=== PATIENT | female | born 1990 | race Hispanic/Latino ===

== ENCOUNTER 2021-07-24 19:26 | Emergency (ER) | payer SELFPAY ==
--- OUTSIDE RECORDS SUMMARY | 2021-07-24 19:30 | XMS REPORT | Continuity of Care Document ---
:1990 Author Organization [facility] t Address [address] [place] [address] Care Team Providers Name Role Phone Austin MCDONOUGH Attending Clinician Unavailable Doctor Unassigned, Name Attending Clinician Unavailable Austin Mcdonough MD Attending Clinician Elisa FRENCH Attending Clinician ELISA Attending Clinician Unavailable Problems Condition Condition Condition Status Onset Resolution Last Treating Co mments Source Name Details Category Date Date Treatment Clinician Date Well woman Well woman Disease Active U nivers exam (no exam (no 09-26 ity of gynecolog[place] er[place] exam[place] eric exam[place] 00 [facility] BMI BMI Disease Active Univers 28.0-28.9, 28.0-28.9, 5-19 it y of adult adult 00:00: [place] 00 Medical Branch Anemia, Anemia, Disease Active Univers 1-24 it y of 00:00: [place] 00 Medical Branch History of History of Disease Active U nivers inguinal inguinal 1-07 ity of hernia hernia 00:00: [place] repair, repair, 00 Medical bilateral bilateral Bran ch History of History of Disease Active Overview : Univers tracheoeso tracheoeso 1-07 reports i ty of phageal phageal 00:00: repair [place] fistula fistula 00 was done Medica l when she Branch was a baby.Has large vertical infraumbi lical scar Tubal Tubal Disease Active 2014-05 Overview: Univer s ligation ligation 2-18 Declined ity of status status 00:00: d/t [place] 00 vaginal Medical delivery, Branch consideri ng EssureCon sent signed 04/27/15 History of History of Disease Active 2014-05 U nivers 0-05 ity of delivery, delivery, 00:00: Claudio gao currently currently 00 [facility] Branch in third in third trimester trimester Susceptibl Susceptibl Disease Active U nivers e to e to 8-13 ity of varicella varicella 00:00: Claudio gao (non-immun (non-immun 00 Me dical e), e), Branch currently currently Generalize Generalize Disease Active U nivers d anxiety d anxiety 9-11 ity of disorder disorder 00:00: [place] 00 Medical Branch Allergies, Adverse Reactions, Alerts Allergy Allergy Status Severity Reaction(s) Onset Inactive Treating Comm ents Source Name Type Date Date Clinician PEANUT DRUG Active Anaphylaxis Unive rs INGREDI 8-08 ity of 00:00: [place] 00 Medical Branch Peanut Propensi Active Anaphylaxis Uni vers ty to 8-08 ity of adverse 00:00: [place] reaction 00 Medical s Branch LATEX DRUG Active Swelling 2012-05 Univers INGREDI 0-04 ity of 00:00: [place] 00 Medical Branch Latex Propensi Active Swelling 2012-05 Vaginal Unive rs ty to 0-04 area ity of adverse 00:00: only. [place] reaction 00 Medical s Branch Social History Social Habit Start Date Stop Date Quantity Comments Source Exposure to Not sure [facility] SARS-CoV-2 [facility] (event) [place] Tobacco use and 2020-08-23 2020-08-23 Never used Universit y of exposure 00:00:00 00:00:00 [facility] [place] [facility] Alcohol intake 2020-08-23 2020-08-23 Current University of 00:00:00 00:00:00 non-drinker of [facility] alcohol Branch (finding) Alcohol Comment 2015-09-26 2015-09-26 only drinks on Unive rsity of 00:00:00 00:00:00 weekends. [facility] [place] [facility] Sex Ass[birth year] At [birth year] Universit y of 00:00:00 00:00:00 [facility] [place] [facility] Smoking Status Start Date Stop Date Source Never smoker [facility] Medications Ordered Filled Start Stop Current Ordering Indication Dosage Frequency Signature Comments Components Source Medication Medication Date Date Medication? Clinician (SIG) Name Name ceFAZolin 2020- No 1000mg 1,000 mg, Univers (ANCEF) 3-12 03-12 IV ity of 1,000 mg in 00:30: 00:15 Piggyback, [place] NaCl 0.9% 00 :00 ONCE, 1 Medical (NS) 50 mL dose, [facility] ch MINI-BAG 07/19/20 at 1830, 50 mL
Reas on for Anti-Infec tive: Documented Infection< br>Documen lidia Infection Site: Urine
D uration of Therapy: 7 days ketorolac No 30mg 30 mg, Unive rs (TORADOL) 07-19 Slow IV ity of injection 23:30: 22:41 Push, [place] 30 mg 00 :00 ONCE, 1 Medical dose, [facility] Branch 07/19/20 at 1730, CARLOS
Fa culty member approving Restricted medication : EMERGENCY ROOM, aspirin 2020- No 325mg 325 mg, Unive rs tablet 325 07-19 Oral, ity of mg 22:00: 22:14 ONCE, 1 [place] 00 :00 dose, [facility] Medical 07/19/20 at Branch 1600, STAT cephALEXin 2020- No [id number] 500mg Take 1 Univers (KEFLEX) 07-19 capsule by ity of 500 mg 00:00: 04:59 mouth 2 [place] capsule 00 :00 (two) Medical times Branch daily for 7 days. predniSONE Yes Take 1 Unive rs 20 mg 1-14 tablet PO ity of tablet 00:00: twice a [place] day for 5 Medical days, then Branch 1 tablet Q AM for 3 days montelukast Yes 10mg Take 1 Univ ers (SINGULAIR) 1-14 tablet by ity of 10 mg 00:00: mouth at [place] tablet 00 bedtime. Medical Branch amoxicillin Yes 1{tbl} Take 1 Un tunde -clavulanat 1-14 tablet by ity of e 875-125 00:00: mouth [place] mg per 00 every 12 Medical tablet (twelve) Branch hours. predniSONE Yes Take 1 Unive rs 20 mg 1-14 tablet PO ity of tablet 00:00: twice a [place] 00 day for 5 Medical days, then Branch 1 tablet Q AM for 3 days montelukast Yes 10mg Take 1 Univ ers (SINGULAIR) 1-14 tablet by ity of 10 mg 00:00: mouth at [place] tablet 00 bedtime. Medical Branch amoxicillin Yes 1{tbl} Take 1 Un tunde -clavulanat 1-14 tablet by ity of e 875-125 00:00: mouth [place] mg per 00 every 12 Medical tablet (twelve) Branch hours. predniSONE 2020- No Take 1 Univ ers 20 mg 1-14 04-15 tablet PO ity of tablet 00:00: 00:00 twice a [place] 00 :00 day for 5 Medical days, then Branch 1 tablet Q AM for 3 days montelukast 2020- No 10mg Take 1 Uni vers (SINGULAIR) 1-14 04-15 tablet by it y of 10 mg 00:00: 00:00 mouth at [place] tablet 00 :00 bedtime. Medical Branch amoxicillin 2020- No 1{tbl} Take 1 U nivers -clavulanat 1-14 04-15 tablet by it y of e 875-125 00:00: 00:00 mouth [place] mg per 00 :00 every 12 Medical tablet (twelve) Branch hours. predniSONE 2020- No Take 1 Univ ers 20 mg 1-14 04-15 tablet PO ity of tablet 00:00: 00:00 twice a [place] 00 :00 day for 5 Medical days, then Branch 1 tablet Q AM for 3 days montelukast 2020- No 10mg Take 1 Uni vers (SINGULAIR) 1-14 04-15 tablet by it y of 10 mg 00:00: 00:00 mouth at [place] tablet 00 :00 bedtime. Medical Branch amoxicillin 2020- No 1{tbl} Take 1 U nivers -clavulanat 1-14 04-15 tablet by it y of e 875-125 00:00: 00:00 mouth [place] mg per 00 :00 every 12 Medical tablet (twelve) Branch hours. predniSONE 2020- No Take 1 Univ ers 20 mg 1-14 04-15 tablet PO ity of tablet 00:00: 00:00 twice a [place] 00 :00 day for 5 Medical days, then Branch 1 tablet Q AM for 3 days montelukast 2020- No 10mg Take 1 Uni vers (SINGULAIR) 1-14 04-15 tablet by it y of 10 mg 00:00: 00:00 mouth at [place] tablet 00 :00 bedtime. Medical Branch amoxicillin 2016-1- No 1{tbl} Take 1 U nivers -clavulanat 1-14 04-15 tablet by it y of e 172-835 00:00: 00:00 mouth [place] mg per 00 :00 every 12 Medical tablet (twelve) Branch hours. medroxyPROG 2016-0 Yes [id number] 150mg U nivers ESTERone 5-18 ity of (DEPO-PROVE 19:15: [place] RA) 00 Medical injection Branch 150 mg medroxyPROG 2016-0 Yes [id number] 150mg U nivers ESTERone 5-18 ity of (DEPO-PROVE 19:15: [place] RA) 00 Medical injection Branch 150 mg medroxyPROG 2016-0 Yes [id number] 150mg U nivers ESTERone 5-18 ity of (DEPO-PROVE 19:15: [place] RA) 00 Medical injection Branch 150 mg medroxyPROG 2016-0 Yes [id number] 150mg U nivers ESTERone 5-18 ity of (DEPO-PROVE 19:15: [place] RA) 00 Medical injection Branch 150 mg medroxyPROG 2016-0 Yes [id number] 150mg U nivers ESTERone 5-18 ity of (DEPO-PROVE 19:15: [place] RA) 00 Medical injection Branch 150 mg medroxyPROG 2016-0 Yes [id number] 150mg U nivers ESTERone 5-18 ity of (DEPO-PROVE 19:15: [place] RA) 00 Medical injection Branch 150 mg Immunizations Ordered Filled Immunization Date Status Comments [facility] e Immunization Name Name Varicella 2015-06-04 Completed University of (varivax)(chicken 00:00:00 [place] M edical pox) Branch Varicella 2015-06-04 Completed University of (varivax)(chicken 00:00:00 [place] M edical pox) Branch Varicella 2015-06-04 Completed University of (varivax)(chicken 00:00:00 [place] M edical pox) Branch Varicella 2015-06-04 Completed University of (varivax)(chicken 00:00:00 [place] M edical pox) Branch Varicella 2015-06-04 Completed University of (varivax)(chicken 00:00:00 [place] M edical pox) Branch Varicella 2015-06-04 Completed University of (varivax)(chicken 00:00:00 [place] M edical pox) Branch TDAP 2015-04-27 Completed University of 00:00:00 [facility] [place] [facility] TDAP 2015-04-27 Completed University of 00:00:00 [facility] [place] [facility] TDAP 2015-04-27 Completed University of 00:00:00 [facility] [place] [facility] TDAP 2015-04-27 Completed University of 00:00:00 [facility] [place] [facility] TDAP 2015-04-27 Completed University of 00:00:00 [facility] [place] [facility] TDAP 2015-04-27 Completed University of 00:00:00 [facility] [place] [facility] Influenza Virus 2015-01-26 Completed Universit y of Vaccine Quad IM 3+ 00:00:00 [facility] Influenza Virus 2015-01-26 Completed Universit y of Vaccine Quad IM 3+ 00:00:00 [facility] Influenza Virus 2015-01-26 Completed Universit y of Vaccine Quad IM 3+ 00:00:00 [facility] Influenza Virus 2015-01-26 Completed Universit y of Vaccine Quad IM 3+ 00:00:00 [facility] Influenza Virus 2015-01-26 Completed Universit y of Vaccine Quad IM 3+ 00:00:00 [facility] Influenza Virus 2015-01-26 Completed Universit y of Vaccine Quad IM 3+ 00:00:00 [facility] HPV 2009-02-27 Completed University of 00:00:00 [facility] [place] [facility] HPV 2009-02-27 Completed University of 00:00:00 [facility] [place] [facility] HPV 2009-02-27 Completed University of 00:00:00 [facility] [place] [facility] HPV 2009-02-27 Completed University of 00:00:00 [facility] [place] [facility] HPV 2009-02-27 Completed University of 00:00:00 [facility] [place] [facility] HPV 2009-02-27 Completed University of 00:00:00 [facility] [place] [facility] HPV 2008-10-30 Completed University of 00:00:00 [facility] [place] [facility] HPV 2008-10-30 Completed University of 00:00:00 [facility] [place] [facility] HPV 2008-10-30 Completed University of 00:00:00 [facility] [place] [facility] HPV 2008-10-30 Completed University of 00:00:00 [facility] [place] [facility] HPV 2008-10-30 Completed University of 00:00:00 [facility] [place] [facility] HPV 2008-10-30 Completed University of 00:00:00 [facility] [place] [facility] HPV 2008-08-17 Completed University of 00:00:00 [facility] [place] [facility] HPV 2008-08-17 Completed University of 00:00:00 [facility] [place] [facility] HPV 2008-08-17 Completed University of 00:00:00 [facility] [place] [facility] HPV 2008-08-17 Completed University of 00:00:00 [facility] [place] [facility] HPV 2008-08-17 Completed University of 00:00:00 [facility] [place] [facility] HPV 2008-08-17 Completed University of 00:00:00 [facility] [place] [facility] Rubella 2007-12-01 Completed University of 00:00:00 [facility] [place] [facility] Varicella 2007-12-01 Completed University of (varivax)(chicken 00:00:00 [facility] edical pox) Branch Rubella 2007-12-01 Completed University of 00:00:00 [facility] [place] [facility] Varicella 2007-12-01 Completed University of (varivax)(chicken 00:00:00 [facility] edical pox) Branch Rubella 2007-12-01 Completed University of 00:00:00 [facility] [place] [facility] Varicella 2007-12-01 Completed University of (varivax)(chicken 00:00:00 [place] edical pox) Branch Rubella 2007-12-01 Completed University of 00:00:00 [facility] [place] [facility] Varicella 2007-12-01 Completed University of (varivax)(chicken 00:00:00 [facility] edical pox) Branch Rubella 2007-12-01 Completed University of 00:00:00 [facility] [place] [facility] Varicella 2007-12-01 Completed University of (varivax)(chicken 00:00:00 [facility] edical pox) Branch Rubella 2007-12-01 Completed University of 00:00:00 [facility] [place] [facility] Varicella 2007-12-01 Completed University of (varivax)(chicken 00:00:00 [place] M edical pox) Branch Td 2006-02-12 Completed University of 00:00:00 [facility] [place] [facility] Td 2006-02-12 Completed University of 00:00:00 [facility] [place] [facility] Td 2006-02-12 Completed University of 00:00:00 [facility] [place] [facility] Td 2006-02-12 Completed University of 00:00:00 [facility] [place] [facility] Td 2006-02-12 Completed University of 00:00:00 [facility] [place] [facility] Td 2006-02-12 Completed University of 00:00:00 [facility] [place] [facility] Vital Signs Vital Name Observation Time Observation Value Comments Source Body height 2020-08-23 16:34:00 165.1 cm Universi [facility] Body weight 2020-08-23 16:34:00 68.13 kg [facility]i [facility] [place] [facility] BMI 2020-08-23 16:34:00 24.99 kg/m2 [facility] [place] [facility] Oxygen saturation in 2020-08-23 16:34:00 98 /min University of Arterial blood by [facility] Pulse oximetry Branch Systolic blood 2020-08-23 16:34:00 108 mm[Hg] Univer sity of pressure [place] [facility] Diastolic blood 2020-08-23 16:34:00 73 mm[Hg] Unive rsity of pressure [place] [facility] Heart rate 2020-08-23 16:34:00 68 /min [facility] [place] [facility] Respiratory rate 2020-08-23 16:34:00 19 /min Univ ersity of [facility] Branch Systolic blood 2020-07-20 01:00:00 113 mm[Hg] Univer sity of pressure [place] [facility] Diastolic blood 2020-07-20 01:00:00 79 mm[Hg] Unive rsity of pressure [place] [facility] Heart rate 2020-07-20 01:00:00 70 /min [facility]i [facility] [place] [facility] Respiratory rate 2020-07-20 01:00:00 17 /[facility] [place] [facility] Oxygen saturation in 2020-07-20 01:00:00 100 /min University of Arterial blood by [facility] Pulse oximetry Branch Body temperature 2020-07-19 22:46:47 36.72 [facility] height 2020-07-19 21:46:00 165.1 cm [facility] Body weight 2020-07-19 21:46:00 68.947 kg [facility] BMI 2020-07-19 21:46:00 25.29 [facility]/m2 [facility] Procedures Procedure Date / Time Performed Performing Clinician Sourc e EXTERNAL PROVIDER - 2020-09-07 05:01:00 Doctor Unassigned, No [facility] CARDIOLOGY Name Medical Branch ASSIGNMENT OF BENEFITS 2020-08-23 16:20:41 Doctor Unassigned, No [facility] Branch TROPONIN I 2020-07-20 00:33:[address] [facility] BASIC METABOLIC PANEL 2020-07-19 22:13:00 Keira Brar [facility] (NA, K, CL, CO2, Medical Branch GLUCOSE, BUN, CREATININE, CA) CBC WITH DIFF 2020-07-19 22:13:[address] [facility] URINALYSIS 2020-07-19 22:13:00 [facility] 2020-07-19 22:13:00 Keira Brar [facility] XR CHEST 1 VW 2020-07-19 22:00:47 [facility] NOTICE OF PRIVACY 2020-07-19 21:41:35 Doctor Unassigned, No [facility] PRACTICES Name [facility] Encounters Start End Encounter Admission Attending Care Care Encounter Source Date/Time Date/Time Type Type Clinicians Facility Department ID 2021-02-27 2021-02-27 [id number] Univers 13:00:00 13:00:00 SENDIL [id number] [facility] [place] 2020-10-04 2020-10-04 [facility] [id number] Univers 13:30:00 13:30:00 SENDIL [id number] [facility] 2020-10-04 2020-10-04 Outpatient R CEASAR [facility] [id number] Univers 13:30:00 13:30:00 SENDIL [facility] [place] [facility] 2020-09-12 2020-09-12 [facility] [id number] Univers 13:00:00 13:00:00 SENDIL [id number] [facility] [place] 2020-09-07 2020-09-07 Orders Doctor TANG [id number] Univers 00:00:00 00:00:00 Only Unassigned, KEMAR [id number] ity [place] [facility] [id number] Manfred as [phone] [address] 2020-08-23 2020-08-23 Office Ceasar [facility] [id number] Univers 11:22:01 12:02:21 Visit Sendangel [place] [id number] ity [facility] [id number] [place] [facility] [phone] [place] [id number] [facility] 2020-08-23 2020-08-23 Outpatient R CEASAR, [facility] [id number] Univers 11:00:00 11:00:00 SENDIL [facility] [place] [facility] 2020-08-23 2020-08-23 Orders Doctor KITTY [id number] Univers 00:00:00 00:00:00 Only Unassigned, KEMAR [id number] ity of [place] [facility] [id number] Manfred as [phone] [facility] [address] [place] 2020-07-19 2020-07-19 Emergency [facility] [id number] Univers 15:50:00 19:36:00 Keira Clarissa [id number] i ty [facility] [id number] [place] [id number] [facility] [address] [place] 2020-07-19 2020-07-19 Emergency X [facility] ERT [id number] Univers 15:41:00 15:41:00 [facility] Results Test Description Test Time Test Comments Results Result Comments Source PAP TEST, THINPREP, IMAGED 2021-07-10 12:16:37 Test Item Value Reference Range Interpretation Comme nts SOURCE: (test code = Cervical/Endocervical 8001) SLIDES: (test code = 2 8011) LMP: (test code = 8021) 06/15/2021 SPECIMEN ADEQUACY: (NOTE) Unsa tisfactory (see (test code = 74778) Interpre tation). INTERPRETATION: (test UNSATISFACTORY; SEE BELOW A code = 85846) ------ UNSATISFACTORY FOR EVALUATION Insufficient cellularity (Charges deleted, please resubmit)------ OTHER COMMENTS: (test (NOTE) Interp reted using an alternate code = 8081) method of proce ssing. This testwas develop ed and its performance nilsa racteristics determined by[facility] [place] [facility]. It has not been cleared or approved by the FDA. The onel rubin is regulated under CLIA asqu alified to perform high-co mplexity testing. This test is us edfor clinical purposes. It sh ould not be regarded asinve stigational or for research. RESTAURANT LINE SERVER: (test MOLLY RUIZ,CT(ASCP) code = 8101) QC TECHNOLOGIST: (test STEPHANIE SHEFFIELDCT(ASCP) code = 8111) LOCATION: (test code = (NOTE) Speci mens processed and 42539) interpreted at [facility], [address] [place] [address], , CLIA: [id number] CPT: (test code = 8140) (NOTE) 8817 5 UNLESS OTHERWISE INDICATED, COMP UTER AIDED AND CYTOTECHNOLOGIS T SCREENING PERFORMED. The Pap test is a screening lety t with an inherent, but l ow probability of error. Your patient should be reminded to consult you im mediately if she experiences any suspicious signs or sympto ms, regardless of her Pap test re sult. An alternate repor t format containing imag es or consolidated prior Pap history is avai lable as applicable. CT/NG, NAAT, [id number] 17:27:32 Test Item Value Reference Range Interpretation Comments GONORRHEA, NAAT NEGATIVE NEGATIVE IMPORTANT (test code = NOTICE: [place] [address]) [email or web address] Note: Assay methodology is nucleic acid amplification b y chemical sprayer mediated amplification ( TMA) utilizing the A ptima Combo 2 Assay. CHLAMYDIA, NAAT NEGATIVE NEGATIVE IMPORTANT (test code = NOTICE: [place] [address]) [email or web address] Note: Assay methodology is nucleic acid amplification b y chemical sprayer mediated amplification ( TMA) utilizing the A ptima Combo 2 Assay. HPV HIGH RISK WITH GENOTYPE, [id number] 16:08:47 Test Item Value Reference Range Interpretation Comments HPV HIGH RISK INTERP NEGATIVE NEGATIVE (test code = 89071) HPV 16 (test code = NEGATIVE 55626) HPV 18 (test code = NEGATIVE 18372) HPV, HR, OTHER NEGATIVE Testing GENOTYPES (test code methodo logy is real-time = 89674) PCR utilizing h ydrolysis probes with the Noy Ashleigh 480 0 system. The test indiv idually detects genot ypes 16 and 18, as well as the other 12 high r isk types (31,33,35,39,45 ,51,52,56 ,58,59,66,68). The expected re sult is negative. A negative result does not rule out the presence of HPV not included in the genotype set, a low level of infect ion or specimen aggie pling error. U NLESS OTHERWISE INDIC ATED, ALL TESTING PERFORM ED ATCLINICAL PATH [facility]. [address] [place] [id number] LABORATORY DIRE CTOR: Pipo JOSEPH NUMBER [id number] CAP ACCREDITATION N O. [id number] VAGINAL PATHOGENS DNA [id number] 13:38:48 Test Item Value Reference Range Interpretation Comments OPAL SPECIES (test code = 08220) NEGATIVE NEGATIVE G. VAGINALIS (test code = ) POSITIVE NEGATIVE A T. VAGINALIS (test code = ) NEGATIVE NEGATIVE [id number] 03:33:20 Test Item Value Reference Range Interpretation Comments RPR RESULT (test NON-REACTIVE NON-REACTIVE code = 3501) RPR TITER (test NOT INDIC. NOT INDIC. UNLES S OTHERWISE code = 3500) TITER INDICATED, ALL TESTING PERFORMED ATC NICAL PATHOLOGY LABOR [facility] [address] [place] [address] 7875 4 LABORATORY DI BRIAN: Pipo JOSEPHIA NUMBE R [id number] CAP ACCREDITATION N O. [id number] HIV 1/2 4TH GEN, RFLX [id number] 03:02:46 Test Item Value Reference Range Interpretation Comments HIV 1/2 4TH GEN, RFLX CONF (test NON-REACTIVE NON-REACTIVE code = 3514) HEPATITIS PANEL, [id number] 03:02:46 Test Item Value Reference Range Interpretation Comments HEPATITIS A IgM (test NON-REACTIVE NON-REACTIVE code = 84733) HEPATITIS B CORE IgM NON-REACTIVE NON-REACTIVE (test code = 4644) HEPATITIS B SURF AG NON-REACTIVE NON-REACTIVE (test code = 2739) HEPATITIS C ANTIBODY NON-REACTIVE NON-REACTIVE (test code = 4675) INTERPRETATION (NOTE) Hepatiti s A HEPATITIS A: (test code sero logy shows no = 2552) evidence of acu te hepatitis A. INTERPRETATION (NOTE) Hepatiti s B HEPATITIS B: (test code sero logy shows no = 73711) evidence of acu te hepatitis B and no indication of exposure to hepatitis B vir us in the previous kaveh eight months. INTERPRETATION (NOTE) Hepatiti s C HEPATITIS C: (test code sero logy shows no = 31609) evidence of exposure to hepatitisC viru s at this time. It can take up to 12 months after exposure tothe hepatitis C vir us for antibodies to become detectab le in the bloo d in certain patients. SARS-CoV-2 (COVID-19), RT-PCR/[id number] 08:08:12 Test Item Value Reference Interpretation Comments Range SARS-CoV-2 POSITIVE SEE NOTE A SARS-CoV-2 RNA INTERPRETATION DETECTEDPosit scott results (test code = are indicative of the [address]) presence of FIONA S-CoV-2 RNA;clinical co rrelation with patient hi story and other diagnosticinfor mation is necessary to de termine patient infecti on status.Positive results do not rule out bacterial infec tion or co-infectionwit h other viruses. Positi ve and negative predic tive values oftestin g are highly dependen t on prevalence. SOURCE (test code NASOPHARYNGEAL Note: M ethodology is = 91390) Noy Ashleigh Sofia l-Time RT-PCR. The exp ected result or refe rence range is NEGATI VE (Not Detected). For more information reg arding COVID-19 testin g to include clinicalinforma tion, methodology det ail, intended use, F DA authorization andrecommended fact sheets for nataliia ents or healthcare prov iders, see [facility] Announcement: S ARS-CoV-2 (COVID-19) by Jasen CAMPOVERDE at URL below (note ,fact sheets are prov ided by method given in report:https:// www.[employer]/clinicia ns/client -communications / Alternatively, see downloadable PD F fact sheet at:https://www. [employer] om/XHMMT-34-GA- PCR UNLESS OTHERWIS E INDICATED, ALL TESTING PERFORMED [facility] PATH[facility] [employer] [facility]. [address] [place] [address] 4 LABORATORY DIR TOM: DARY TARIQ M.D. CLIA NUMBER [id number] CAP ACCREDITATION N O. [id number] TROPONIN [id number] 01:09:04 Test Item Value Reference Range Interpretation Comments TROPONIN I (test <0.012 See_Comment [Automated code = 4973351964) message] The system which generated this result transmitted reference range : <=0.034 ng/mL. The reference range was not used to interpr et this result as normal/abnormal . NICHOLAS (test code = Equal or Less than NICHOLAS) 0.034 ng/ml---Normal ?Note: Cardiac troponin begins to rise 3-4 hours after the onset of ischemia. Repeat in 4-6 hours if the sample was drawn within 3-4 hours of the onset of the symptom and found normal. Between 0.035 and 0.120 ng/mL--- Borderline. Questionable myocardial injury or necrosis ? ?Note: Serial measurement may be necessary to confirm or exclude the diagnosis of myocardial injury or necrosis; Clinical correlation (symptoms, EKGs, imaging studies, and others) required; Repeat in 4-6 hours if clinically indicated. ? Equal or Higher than 0.121 ng/mL---Abnormal. Myocardial Injury or Necrosis Likely ? Biotin has been reported to cause a negative bias, interpret results relative to patient's use of biotin. ? Lab Interpretation Normal (test code = 67974-4) [facility] (NA, K, CL, CO2, GLUCOSE, BUN, CREATININE, CA)2020-07-19 22:50:13 Test Item Value Reference Range Interpretation Comments NA (test code = 140 mmol/L 135-145 8158053358) K (test code = 3.6 mmol/L 3.5-5.0 0473396044) CL (test code = 103 mmol/L 98-108 9308899844) CO2 TOTAL (test code = 26 mmol/L 23-31 0204281225) AGAP (test code = 2-16 9433132026) BUN (test code = 15 mg/dL 7-23 5144338921) GLUCOSE (test code = 99 mg/dL 70-110 4925411714) CREATININE (test code 0.74 mg/dL 0.50-1.04 = 3965942634) CALCIUM (test code = 9.3 mg/dL 8.6-10.6 0719931719) eGFR Calculation mL/min/1.73m2 (Non-) (test code = 1914856783) eGFR Calculation mL/min/1.73m2 () (test code = 9692889027) NICHOLAS (test code = NICHOLAS) Association of Glomerular Filtration Rate (GFR) and Staging of Kidney Disease* + -+ + ---+| GFR (mL/min/1.73 m2) ?| With Kidney Damage ?| ?Without Kidney Damage+ -------+ ------+ ---------+| ?>90 ?| ?Stage one ?| ? Normal ?+ --+ -+ ----+| ?60-89 ?| ?Stage two ?| ? Decreased GFR ? + -+ + ---+| ?30-59 ?| ?Stage three ?| ? Stage three ? + -+ + ---+| ?15-29 ?| ?Stage four ? | ? Stage four ?+ --+ -+ ----+| ?<15 (or dialysis) ? ?| ?Stage five ? | ? Stage five ?+ --+ -+ ----+ *Each stage assumes the associated GFR level has been in effect for at least three months. ?Stages 1 to 5, with or without kidney disease, indicate chronic kidney disease. Notes: Determination of stages one and two (with eGFR >59mL/min/1.73 m2) requires estimation of kidney damage for at least three months as defined by structural or functional abnormalities of the kidney, manifested by either:Pathological abnormalities or Markers of kidney damage (including abnormalities in the composition of the blood or urine or abnormalities in imaging tests). [facility]55 Test Item Value Reference Range Interpretation Comments APPEARANCE (test code = Hazy Clear A 6782174886) COLOR (test code = Yellow Yellow 7669581860) PH (test code = 4.8-8.0 9013706954) SP GRAVITY (test code = 1.003-1.030 6500841989) GLU U QUAL (test code = Normal Normal 6247312458) BLOOD (test code = Negative Negative 5591814484) KETONES (test code = Negative Negative 6568513968) PROTEIN (test code = Negative Negative 2887-8) UROBILIN (test code = Normal Normal 0333697769) BILIRUBIN (test code = Negative Negative 2221391215) NITRITE (test code = Negative Negative 9192166435) LEUK THI (test code = 500/uL Negative A 8764611428) RBC/HPF (test code = See_Comment [Autom ated message] 8903697247) The system [employer] generated this result transmitted ref erence range: 0 - 3 HP F. The reference range was not used to int erpret this result as normal/abnormal . WBC/HPF (test code = See_Comment H [Autom ated message] 2254812849) The system [employer] generated this result transmitted ref erence range: 0 - 5 HP F. The reference range was not used to int erpret this result as normal/abnormal . BACTERIA (test code = Few Negative A 6142967844) MUCOUS (test code = Slight Negative LPF A 2636722806) SQ EPITH (test code = HPF 7267239985) HYAL CAST (test code = See_Comment [Aut omated message] 8631434154) The system [employer] generated this result transmitted ref erence range: <=2 LPF. The reference range was not used to int erpret this result as normal/abnormal . Lab Interpretation (test Abnormal code = 35279-6) [facility] with [id number] 22:31:25 Test Item Value Reference Range Interpretation Comments WBC (test code = See_Comment [Automated 6690-2) message] The sy stem which generated this result transmitted reference range : 4.30 - 11.10 10*3/?L. The reference range was not used to interpret this result as normal/abnormal . RBC (test code = See_Comment [Automated 789-8) message] The sy stem which generated this result transmitted reference range : 3.93 - 5.25 10*6/?L. The reference range was not used to interpret this result as normal/abnormal . HGB (test code = 11.1 g/dL 11.6-15.0 L 718-7) HCT (test code = 34.3 % 35.7-45.2 L 4544-3) MCV (test code = 78.5 fL 80.6-95.5 L 787-2) MCH (test code = 25.4 pg 25.9-32.8 L 785-6) MCHC (test code = 32.4 g/dL 31.6-35.1 786-4) RDW-SD (test code = 44.0 fL 39.0-49.9 99618-2) RDW-CV (test code = 15.4 % 12.0-15.5 788-0) PLT (test code = See_Comment [Automated 777-3) message] The sy stem which generated this result transmitted reference range : 166 - 358 10*3/ ?L. The reference r victorino was not used to interpret this result as normal/abnormal . MPV (test code = 12.3 fL 9.5-12.9 50328-6) NRBC/100 WBC (test See_Comment [Automat ed code = 3482368577) message] The system which generated this result transmitted reference range : 0.0 - 10.0 /100 WBCs. The refer ence range was not u sed to interpret th is result as normal/abnormal . NRBC x10^3 (test code <0.01 See_Comment [Auto mated = 3069519489) message] The s ystem which generated this result transmitted reference range : 10*3/?L. The reference range was not used to interpret this result as normal/abnormal . GRAN MAT (NEUT) % 48.9 % (test code = 770-8) IMM GRAN % (test code 0.30 % = 6617876231) LYMPH % (test code = 41.2 % 736-9) MONO % (test code = 6.4 % 5905-5) EOS % (test code = 2.7 % 713-8) BASO % (test code = 0.5 % 706-2) GRAN MAT x10^3(ANC) 4.32 10*3/uL 1.88-7.09 (test code = 7764320269) IMM GRAN x10^3 (test 0.03 10*3/uL 0.00-0.06 code = 4212065969) LYMPH x10^3 (test code 3.65 10*3/uL 1.32-3.29 H = 731-0) MONO x10^3 (test code 0.57 10*3/uL 0.33-0.92 = 742-7) EOS x10^3 (test code = 0.24 10*3/uL 0.03-0.39 711-2) BASO x10^3 (test code 0.04 10*3/uL 0.01-0.07 = 704-7) Lab Interpretation Abnormal (test code = 07509-9) [facility] [id number] 22:13:00 Test Item Value Reference Range Interpretation Comments POCT PREG (test code = 1605) negative POCT PREG LOT # (test code = 3575) [id number] POCT PREG TEST DATE (test 03/10/2022 code = 3576) Lab Interpretation (test code = Normal 35980-1) [facility] 1 [id number] 22:12:15HISTORY: Chest pain. TECHNIQUE: Portable AP view of the chest is obtained. No prior chest studyavailable for comparison. FINDINGS: No acute pneumonia. No pneumothorax or pleural effusion orpulmonary congestion detected. Cardiac size is within normal limits. CONCLUSIONS: No signs of acute cardiopulmonary disease.[facility], Radiant Results Inft User - 07/19/2020 4:13 PM CSTHISTORY: Chest pain.TECHNIQUE: Po rtable AP view of the chest is obtained. No prior chest studyavailable for comparison.FINDINGS: No acute pneumonia. No pneumothorax or pleural effusion orpulmonary congestion detected. Cardiac size is within normal limits. CONCLUSIONS: No signs of acute cardiopulmonary disease.[facility]"
[2021-07-24 20:53] LABS: Absolute Lymphocytes (CBC) 2.6 K/uL (0.7-4.9); Hematocrit 28.2 % (36.0-45.0); Lymphocytes % 41.5 % (15.3-44.8); MPV 8.5 fL (7.6-11.3)
[2021-07-24] MEDS ORDERED: IBUPROFEN 400 MG TAB ONE (20:58)
[2021-07-24 21:12] LABS: ALT/SGPT 100 U/L (12-78); AST/SGOT 81 U/L (15-37); Albumin 3.5 g/dL (3.4-5.0); Alkaline Phosphatase 78 U/L (45-117); BUN Blood Urea Nitrogen 14 mg/dL (7-18); Bicarbonate 28 mmol/L (21-32); Bilirubin Total 0.1 mg/dL (0.2-1.0); Glucose Level 100 mg/dL (74-106); Potassium 3.8 mmol/L (3.5-5.1); Protein, Total 7.6 g/dL (6.4-8.2); Sodium Level 140 mmol/L (136-145)
--- NOTE | 2021-07-24 21:12 | RAD REPORT ---
EXAM DESCRIPTION: Nidia Single View07/24/2021 8:49 pm CLINICAL HISTORY: Chest pain COMPARISON: none FINDINGS: The lungs appear clear of acute infiltrate. The heart is normal size IMPRESSION: No acute abnormalities displayed
[2021-07-24 21:18] LABS: Bilirubin Direct < 0.1 mg/dL (0-0.2); Troponin High Sensitivity < 3.00 pg/mL (<58.9)
--- NOTE | 2021-07-25 07:44 | ER ---
Nurse's Notes [facility] Name: Kacey Muir Age: 31 yrs Sex: Female : 1990 Arrival Date: 07/24/2021 Time: 19:32 Bed 18 Private MD: Diagnosis: Chest pain, unspecified Presentation: 07/24 19:52 Chief complaint: Patient states: Patient c/o pain on breathing front and back of the ke1 chest , cough and headache since this morning. Coronavirus screen: Vaccine status: Patient reports receiving the 2nd dose of the covid vaccine. Date March 2021. Ebola Screen: No symptoms or risks identified at this time. Initial Sepsis Screen: Does the patient meet any 2 criteria? No. Patient's initial sepsis screen is negative. Does the patient have a suspected source of infection? No. Patient's initial sepsis screen is negative. Risk Assessment: Do you want to hurt yourself or someone else? Patient reports no desire to harm self or others. Onset of symptoms was July 24, 2021. 19:52 Method Of Arrival: Ambulatory [facility] 19:52 Acuity: LALA 3 ke1 Triage Assessment: 19:59 General: Appears in no apparent distress. Behavior is calm, cooperative. Pain: ke1 Complains of pain in Chest front and back on breathing. EENT: No deficits noted. Neuro: Level of Consciousness is awake, alert, Oriented to person, place, time, situation. Cardiovascular: Reports chest pain, Heart tones S1 S2 Capillary refill < 3 seconds JVD is absent Patient's skin is warm and dry. Pulses are all present. Respiratory: Airway is patent Trachea midline Respiratory effort is even, unlabored, Respiratory pattern is regular, symmetrical, Breath sounds are clear. GI: Abdomen is round non-distended, Bowel sounds present X 4 quads. Abd is soft and non tender Patient currently denies constipation. : No deficits noted. Derm: No deficits noted. Musculoskeletal: No deficits noted. 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 - Social history:: Smoking status: Patient denies any tobacco usage or history of. Screenin:24 Abuse screen: Denies threats or abuse. Nutritional screening: No deficits noted. lr4 Tuberculosis screening: No symptoms or risk factors identified. Fall Risk None identified. Assessment: 20:23 General: Appears in no apparent distress. comfortable, Behavior is calm, cooperative. lr4 Pain: Complains of pain in chest Pain does not radiate. Pain began 1 day ago. Neuro: No deficits noted. Cardiovascular: No deficits noted. Respiratory: No deficits noted. Respiratory: Reports cough that is pain with cough. EENT: Reports. EENT: Reports nasal congestion. 20:32 Reassessment: I recv'd the pt to room 18 \\T2004. She appears in NAD. [place] 07/25 00:25 Reassessment: Another Troponin was sent, per MD's order. [place] 02:08 Reassessment: Awaiting the 2nd troponin results for dispo decision. Pt in NAD. [place] Ambulating with a steady gait. 03:23 Reassessment: I called the lab for the troponin, but the equipment is down. They are [place] working on this. 06:16 Reassessment: Awaiting Troponin results. The pt is anxious to be dc'd home. [place] 06:27 Reassessment: The pt is anxious to be dc'd home, but we are still awaiting the Troponin [place] results. The pt asked if her and her could have "work notes". 07:18 Reassessment: Patient appears in no apparent distress at this time. Pt resting. Pt c/o ab2 headache rating it 6/10 on pain scale. Awaiting troponin results for d/c. Vital Signs: 07/24 19:52 BP 128 / 91; Pulse 100; Resp 18; Temp 99.1(TE); Pulse Ox 100% on R/A; Weight 71.21 kg; ke1 Height 5 ft. 5 in. (165.10 cm); Pain 9/10; 20:58 BP 122 / 68; Pulse 62; Resp 18; Temp 98.5; Pulse Ox 100% on R/A; Pain 0/10; [place] 21:18 BP 111 / 76; Pulse 68; Resp 18; Pulse Ox 100% on R/A; Pain 0/10; [place] 22:33 BP 109 / 68; Pulse 66; Resp 18; Pulse Ox 100% on R/A; Pain 0/10; [place] 23:51 BP 96 / 57; Pulse 59; Resp 18; Temp 98.5; Pulse Ox 99% on R/A; Pain 0/10; [place] 07/25 01:36 BP 98 / 68; Pulse 65; Resp 18; Pulse Ox 100% on R/A; Pain 0/10; [place] 03:37 BP 107 / 68; Pulse 62; Resp 16; Temp 98.6; Pulse Ox 100% on R/A; Pain 0/10; [place] 04:58 BP 104 / 62; Pulse 62; Resp 16; Temp 98.5; Pulse Ox 100% on R/A; Pain 0/10; [place] 06:38 BP 106 / 72; Pulse 68; Resp 18; Pulse Ox 100% on R/A; Pain 0/10; [place] 07:19 BP 115 / 64; Pulse 67; Resp 16; Temp 98.1(O); Pulse Ox 100% on R/A; ab2 07:55 BP 112 / 64; Pulse 69; Resp 16; Pulse Ox 98% on R/A; ab2 07/24 19:52 Body Mass Index 26.13 (71.21 kg, 165.10 cm) ke1 ED Course: 07/24 19:32 Patient arrived in ED. wm 19:57 Triage completed. ke1 20:04 Jovan Dee MD is Attending Physician. kdr 20:20 EKG done. lr4 20:24 No provider procedures requiring assistance completed. Patient maintains SpO2 lr4 saturation greater than 95% on room air. 20:24 Patient has correct armband on for positive identification. Pulse ox on. NIBP on. lr4 20:24 Arm band placed on right wrist. lr4 20:32 Susan Galvez, RN is Primary Nurse. [place] 20:37 XRAY Chest (1 view) Sent. lr4 20:40 Basic Metabolic Panel Sent. [place] 20:40 Basic Metabolic Panel Sent. [place] 20:40 CBC with Diff Sent. [place] 20:40 LFT's Sent. [place] 20:40 Troponin HS Sent. [place] 20:48 XRAY Chest (1 view) In Process Unspecified. EDMS 20:53 Basic Metabolic Panel Sent. [place] 20:53 CBC with Diff Sent. [place] 20:54 LFT's Sent. [place] 20:54 Troponin HS Sent. [place] 22:35 Troponin High Sensitivity Sent. [place] 07/25 07:20 Attending Physician role handed off by Jovan Dee MD ms3 07:20 Hi Martinez DO is Attending Physician. ms3 07:44 Kevin Ang MD is Referral Physician. ms3 07:56 IV discontinued, intact, bleeding controlled, No redness/swelling at site. Pressure ab2 dressing applied. Administered Medications: 07/24 20:58 Drug: Ibuprofen 800 mg Route: PO; [place] 22:35 Follow up: Response: No adverse reaction [place] Outcome: 20:24 Condition: stable lr4 07/25 07:44 Discharge ordered by . ms3 07:56 Discharged to home ambulatory, with family. ab2 07:56 Discharge instructions given to patient, family, Instructed on discharge instructions, follow up and referral plans. Demonstrated understanding of instructions, follow-up care. 07:56 Patient left the ED. ab2 Signatures: Dispatcher [employer] EDMS Jovan Dee MD MD kdr Sims, Marcus, DO DO ms3 Flor Yates Susan Galvez RN RN Lorenzo Peralta ab2 Ambrose Verma, RN RN ke1 Lee Ann Jack RN RN lr4
--- NOTE | 2021-07-25 07:44 | EDPHYS ---
Physician Documentation [facility] Name: Kacey Muir Age: 31 yrs Sex: Female : 1990 Arrival Date: 07/24/2021 Time: 19:32 Bed 18 Private MD: ED Physician Hi Martinez HPI: 07/24 22:45 This 31 yrs old Female presents to ER via Ambulatory with complaints of Chest kdr Congestion, Chest Pressure. 22:45 The patient or guardian reports chest pain that is located primarily in the substernal kdr area. The pain radiates to back. Associated signs and symptoms: Pertinent positives: cough, shortness of breath. The chest pain is described as dull, a pressure. Duration: The patient or guardian reports a single episode, that is still ongoing, Wax and wane. Modifying factors: The symptoms are alleviated by nothing. the symptoms are aggravated by nothing. Modifying factors: the symptoms are aggravated by cough, deep breath. Severity of pain: At its worst the pain was mild in the emergency department the pain. The patient has not experienced similar symptoms in the past. The patient has not recently seen a physician. Patient complains of a cough and headache that started this morning. She has had a recent Covid test which was negative. She had scant sputum. And chest discomfort that radiated through to her back.. 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 - Social history:: Smoking status: Patient denies any tobacco usage or history of. ROS: 22:45 Constitutional: Negative for fever, chills, and weight loss, Eyes: Negative for injury, kdr pain, redness, and discharge, Neck: Negative for injury, pain, and swelling, Abdomen/GI: Negative for abdominal pain, nausea, vomiting, diarrhea, and constipation, Back: Negative for injury and pain, : Negative for injury, bleeding, discharge, and swelling, MS/Extremity: Negative for injury and deformity, Skin: Negative for injury, rash, and discoloration, Neuro: Negative for headache, weakness, numbness, tingling, and seizure activity. Psych: Negative for depression, anxiety, suicide ideation, homicidal ideation, and hallucinations, Allergy/Immunology: Negative for hives, rash, and allergies, Endocrine: Negative for neck swelling, polydipsia, polyuria, polyphagia, and marked weight changes, Hematologic/Lymphatic: Negative for swollen nodes, abnormal bleeding, and unusual bruising. 22:45 Cardiovascular: Positive for chest pain, with cough, with movement, Negative for edema, orthopnea, palpitations, paroxysmal nocturnal dyspnea. 22:45 Respiratory: Positive for cough, with green sputum, shortness of breath, wheezing. Exam: 20:14 ECG was reviewed by the Attending Physician. ms3 22:45 Constitutional: This is a well developed, well nourished patient who is awake, alert, kdr and in no acute distress. Head/Face: Normocephalic, atraumatic. Eyes: Pupils equal round and reactive to light, extra-ocular motions intact. Lids and lashes normal. Conjunctiva and sclera are non-icteric and not injected. Cornea within normal limits. Periorbital areas with no swelling, redness, or edema. Neck: Trachea midline, no thyromegaly or masses palpated, and no cervical lymphadenopathy. Supple, full range of motion without nuchal rigidity, or vertebral point tenderness. No Meningismus. Chest/axilla: Normal chest wall appearance and motion. Nontender with no deformity. No lesions are appreciated. Cardiovascular: Regular rate and rhythm with a normal S1 and S2. No gallops, murmurs, or rubs. Normal PMI, no JVD. No pulse deficits. Respiratory: Lungs have equal breath sounds bilaterally, clear to auscultation and percussion. No rales, rhonchi or wheezes noted. No increased work of breathing, no retractions or nasal flaring. Abdomen/GI: Soft, non-tender, with normal bowel sounds. No distension or tympany. No guarding or rebound. No evidence of tenderness throughout. Back: No spinal tenderness. No costovertebral tenderness. Full range of motion. Skin: Warm, dry with normal turgor. Normal color with no rashes, no lesions, and no evidence of cellulitis. MS/ Extremity: Pulses equal, no cyanosis. Neurovascular intact. Full, normal range of motion. Neuro: Awake and alert, GCS 15, oriented to person, place, time, and situation. Cranial nerves II-XII grossly intact. Motor strength 5/5 in all extremities. Sensory grossly intact. Cerebellar exam normal. Normal gait. Psych: Awake, alert, with orientation to person, place and time. Behavior, mood, and affect are within normal limits. Vital Signs: 19:52 BP 128 / 91; Pulse 100; Resp 18; Temp 99.1(TE); Pulse Ox 100% on R/A; Weight 71.21 kg; ke1 Height 5 ft. 5 in. (165.10 cm); Pain 9/10; 20:58 BP 122 / 68; Pulse 62; Resp 18; Temp 98.5; Pulse Ox 100% on R/A; Pain 0/10; [place] 21:18 BP 111 / 76; Pulse 68; Resp 18; Pulse Ox 100% on R/A; Pain 0/10; [place] 22:33 BP 109 / 68; Pulse 66; Resp 18; Pulse Ox 100% on R/A; Pain 0/10; [place] 23:51 BP 96 / 57; Pulse 59; Resp 18; Temp 98.5; Pulse Ox 99% on R/A; Pain 0/10; [place] / 01:36 BP 98 / 68; Pulse 65; Resp 18; Pulse Ox 100% on R/A; Pain 0/10; [place] 03:37 BP 107 / 68; Pulse 62; Resp 16; Temp 98.6; Pulse Ox 100% on R/A; Pain 0/10; [place] 04:58 BP 104 / 62; Pulse 62; Resp 16; Temp 98.5; Pulse Ox 100% on R/A; Pain 0/10; [place] 06:38 BP 106 / 72; Pulse 68; Resp 18; Pulse Ox 100% on R/A; Pain 0/10; [place] 07:19 BP 115 / 64; Pulse 67; Resp 16; Temp 98.1(O); Pulse Ox 100% on R/A; ab2 07:55 BP 112 / 64; Pulse 69; Resp 16; Pulse Ox 98% on R/A; ab2 07/24 19:52 Body Mass Index 26.13 (71.21 kg, 165.10 cm) ke1 MDM: 07/24 20:14 HEART Score: History: Slightly Suspicious (0), ECG: Normal (0), Age: < or = 45 years ms3 (0), Risk Factors: No Risk Factors Known (0), Troponin: < or = 1 x Normal Limit (0), Total Score = 0. 22:45 Data reviewed: vital signs, nurses notes, lab test result(s), EKG, radiologic studies. kdr Counseling: I had a detailed discussion with the patient and/or guardian regarding: the historical points, exam findings, and any diagnostic results supporting the discharge/admit diagnosis, lab results, radiology results. 07/25 07:20 Patient medically screened. ms3 07:44 Differential diagnosis: abnormal EKG, acute myocardial infarction, chest wall pain. ms3 HEART Score:. 07:53 Special discussion: Based on the patient's history, exam, and Dx evaluation, there is ms3 no indication for emergent intervention or inpatient Tx. It is understood by the patient/guardian that if the Sx's persist or worsen they need to return immediately for re-evaluation. 07/24 20:30 Order name: Basic Metabolic Panel [facility] 07/24 20:30 Order name: CBC with Diff; Complete Time: 22:26 [facility] 07/24 20:30 Order name: LFT's; Complete Time: 22: kdr 07/24 20:30 Order name: Troponin HS; Complete Time: 22:26 kdr 07/24 20:31 Order name: Basic Metabolic Panel; Complete Time: 22:26 EDMS 07/24 20:30 Order name: XRAY Chest (1 view); Complete Time: 22:26 kdr 07/24 20:30 Order name: EKG; Complete Time: 20:31 kdr 07/24 20:30 Order name: Cardiac monitoring; Complete Time: 20:34 [facility] 07/24 20:30 Order name: EKG - Nurse/Tech; Complete Time: 20:33 kdr 07/24 20:30 Order name: IV Saline Lock; Complete Time: 20:34 kdr 07/24 20:30 Order name: Labs collected and sent; Complete Time: 20:40 kdr 07/24 22:27 Order name: Troponin High Sensitivity; Complete Time: 07:41 kdr 07/24 20:30 Order name: O2 Per Protocol; Complete Time: 20:34 kdr 07/24 20:30 Order name: O2 Sat Monitoring; Complete Time: 20:34 kdr EC/16 20:14 Rate is 71 beats/min. Rhythm is regular. QRS [place] is Normal. Clinical impression: ms3 Normal ECG. Interpreted by me. Administered Medications: 20:58 Drug: Ibuprofen 800 mg Route: PO; [place] 22:35 Follow up: Response: No adverse reaction [place] Disposition Summary: 07/25/21 07:44 Discharge Ordered Location: Home ms3 Condition: Stable ms3 Diagnosis - Chest pain, unspecified ms3 Followup: ms3 - With: Kevin Ang MD - When: 1 - 2 days - Reason: Recheck today's complaints Discharge Instructions: - Discharge Summary Sheet ms3 - Nonspecific Chest Pain, Adult ms3 Forms: - Medication Reconciliation Form ms3 - Thank You Letter ms3 - Antibiotic Education ms3 - Prescription Opioid Use ms3 - Work release form ab2 Signatures: Dispatcher [employer] EDMS Jovan Dee MD MD kdr Sims, Marcus, DO DO ms3 Susan Galvez, RN RN Ambrose Gould RN RN ke1
[2021-07-25 08:40] VITALS: TEMP 98.1
[2021-07-25 08:41] VITALS: BP 112/64; O2SAT 98
--- NOTE | 2021-07-29 08:34 | EKG ---
Test Date: 2021-07-24 Test Time: 20:14:57 Rn Night: MELINDA MEASUREMENT RESULTS: Intervals: Rate: 71 ME: 150 QRSD: 90 QT: 390 QTc: 423 Herman: P: 68 ME: 150 QRS: 87 T: 72 INTERPRETIVE STATEMENTS: Normal sinus rhythm Normal ECG No previous ECG available for comparison Electronically Signed On 07-29-21 08:24:12 CDT by Carter Herrera
== END 2021-07-25 07:56 | disposition home or self-care (01) ==
LOC: ER 19:26
DX: R07.9 Chest pain, unspecified (principal); R05.9 Cough, unspecified; Z91.010 Allergy to peanuts; Z91.040 Latex allergy status; Z91.048 Other nonmedicinal substance allergy status
CPT/HCPCS: 36415; 71045; 80048; 80076; 84484; 85025; 93005; 99284